=== PATIENT | male | born 1985 | race Caucasian/White ===

== ENCOUNTER 2016-09-12 11:38 | Emergency (ER) | payer OTHER ==
[~2016-09-12] VITALS: Ht 167.6 cm; Wt 76.2 kg
[~2016-09-12 11:38] MED LIST: ALBUTEROL0.09 MG/A1 INH; AUGMENTIN 875 M1 TAB PO; BACTRIM DS 8001 TAB PO; DOXYCYCLINE MO100 MG PO; KEFLEX500 MG PO; MOTRIN 600 MG600 MG PO; PREDNISONE50 MG PO; ROBITUSSIN200 MG/10 PO; TRAMADOL HCL50 M1 PO; ULTRAM(MONOGRAP50 MG PO; VOLTAREN75 MG PO; ZOFRAN4 MG PO
[2016-09-12 12:13] VITALS: BP 96/70
[2016-09-12] MEDS ORDERED: BACTRIM DS TAB1 EACH PO (12:52)
--- NOTE | 2016-09-12 12:53 | ED HEAD/FACIAL INJ COMPLAINT ---
History of Present Illness General Chief Complaint: General Adult Stated Complaint: NECK PAIN, LUMP BEHIND LEFT EAR, SEEN AT WALK IN Source: patient Exam Limitations: no limitations Vital Signs & Intake/Output Vital Signs & Intake/Output Vital Signs Date Time Temp Pulse Resp B/P Pulse O2 O2 Flow FiO2 Ox Delivery Rate 09/12 1213 98.8 16 96/70 09/12 1143 99.8 114 18 143/113 97 Room Air ED Intake and Output 09/13 0000 09/12 1200 Intake Total 0 Output Total Balance 0 Intake, Oral 0 Patient 168 lb Weight Allergies Coded Allergies: doxycycline (Intermediate, N/V 04/26/16) ibuprofen (Intermediate, R/T HX STOMACH ULCER 04/26/16) Reconcile Medications Sulfamethoxazole/Trimethoprim (Bactrim Ds Tablet) 800 MG-160 MG TABLET 1 TAB PO BID infection Tramadol HCl 50 MG TABLET 1-2 TAB PO BIDP PRN pain Triage Note: PT STATES HE HAD PAIN IN HIS NECK YESTERDAY AND STATES HE THOUGHT IT WAS FROM SLEEP. PT STATES HE WENT TO PCP AND SHE TOLD HIM THAT "IT WAS SOMETHING BEHIND HIS EAR" AND TOLD PT IT WAS UP TO HIM IF HE WANTED TO BE SEEN IN THE ED. Triage Nurses Notes Reviewed? yes HPI: 31-year-old otherwise healthy male with complaints of left-sided neck pain and feeling of small areas of swelling around his neck and scalp region and around his left ear. Started yesterday and is getting worse. He denies any fever or flulike illness, he denies any cough or congestion. His pain is throbbing aching and worse with palpation of the area. No previous history of same. He was seen at his primary care doctor at the [facility] who, per the patient, that since he has neck pain he should be evaluated in the ER for meningitis. Patient denies any trauma to the area. Denies any neurologic symptoms, there is no photophobia, no nausea no vomiting. His doctor called in a prescription for amoxicillin for him and is at the pharmacy waiting for him to pick it up, he has not started it yet. (ALLA PAUL) Past History Travel History Traveled to [place] past 21 day No Medical History Any Pertinent Medical History? 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 No (ALLA PAUL) Review of Systems Review of Systems Constitutional: Reports: see HPI. Respiratory: Reports: no symptoms. Cardiovascular: Reports: no symptoms. GI: Reports: no symptoms. Genitourinary: Reports: no symptoms. Musculoskeletal: Reports: no symptoms. Skin: Reports: no symptoms. Neurological/Psychological: Reports: no symptoms. Hematologic/Endocrine: Reports: no symptoms. Immunologic/Allergic: Reports: no symptoms. All Other Systems: Reviewed and Negative (ALLA PAUL) Physical Exam Physical Exam General Appearance: well developed/nourished, mild distress Head: left side scalp, superior to the ear there is an area of redness and swelling consistent with cellulitis with warmth and exquisite tenderness. Around this area, he has lymphadenopathy, preauricular postauricular posterior cervical chain small mobile lymph nodes are noted. Eyes: Bilateral: PERRL, EOMI. Ears, Nose, Throat: normal pharynx, normal ENT inspection, hearing grossly normal Neck: normal inspection, supple Respiratory: normal breath sounds Cardiovascular: regular rate/rhythm Gastrointestinal: soft, non-tender Back: normal inspection Extremities: normal inspection, normal range of motion, no edema Psychiatric: awake, alert, oriented x 3 Cranial Nerves: normal hearing Coordination/Gait: normal gait Motor/Sensory: no motor/sensory deficits Skin: intact, normal color, warm/dry Lymphatic: no anterior cervical reese Comments: Patient has normal neck range of motion however it is painful with rotation. He has no meningismus. (ALLA PAUL) Progress Differential Diagnosis: corneal abrasion, c-spine injury, facial fracture, globe injury, ICH, orbit fracture, skull fracture, meningitis, abscess, cellulitis, mastoiditis, otitis media and otitis externa, malignant otitis externa Plan of Care: Patient has a cellulitis of the scalp, I do not have concerns of meningitis at this time. He will start the amoxicillin his doctor has prescribed and I have added Bactrim for increased coverage, specifically MRSA coverage. He should return in the next few days for recheck of his infection, he may need I&D of the scalp. He will return if he starts spiking fevers or develops flulike symptoms. He understands and agrees with plan. (ALLA PAUL) Departure Departure Disposition: HOME OR SELF CARE Condition: Stable Clinical Impression Primary Impression: Cellulitis of scalp Secondary Impressions: Lymphadenopathy of head and neck Referrals: ARMANDO MARLOW APRN (PCP/Family) Additional Instructions: Take antibiotics as directed from your primary care doctor, amoxicillin, add Bactrim as well, this was called into pharmacy. Motrin and Tylenol as needed for pain or fever. Return to the ER in 2 days for recheck of your infection, especially if there is worsening redness swelling pain fever or flulike illness headaches or neck pain. Departure Forms: Customer Survey General Discharge Information Prescriptions: Current Visit Scripts Sulfamethoxazole/Trimethoprim (Bactrim Ds Tablet) 1 TAB PO BID #20 TAB (ALLA PAUL) PA/MEDICAL AUTHORIZATION SPECIALIST Co-Sign Statement Statement: ED Attending supervision documentation- [] I saw and evaluated the patient. I have also reviewed all the pertinent lab results and diagnostic results. I agree with the findings and the plan of care as documented in the PA's/MEDICAL AUTHORIZATION SPECIALIST's documentation. x I have reviewed the ED Record and agree with the PA's/MEDICAL AUTHORIZATION SPECIALIST's documentation. [] Additions or exceptions (if any) to the PAs/MEDICAL AUTHORIZATION SPECIALIST's note and plan are summarized below: [] (JAMES COTTON,SONIA)
== END 2016-09-12 12:57 ==
LOC: ERH 11:38
DX: L03.811 Cellulitis of head [any part, except face] (principal); R59.1 Generalized enlarged lymph nodes

== ENCOUNTER 2016-09-18 06:44 | Emergency (ER) | payer OTHER ==
[~2016-09-18] VITALS: Ht 167.6 cm; Wt 76.2 kg
[~2016-09-18 06:44] MED LIST changes: +BACTRIM DS TAB1 EACH PO
--- NOTE | 2016-09-18 07:25 | ED HEAD/FACIAL INJ COMPLAINT ---
History of Present Illness General Chief Complaint: General Adult Stated Complaint: " HEADACHE, CELLULITIS LT SIDE OF HEAD" Source: patient Exam Limitations: no limitations Vital Signs & Intake/Output Vital Signs & Intake/Output Vital Signs Date Time Temp Pulse Resp B/P Pulse O2 O2 Flow FiO2 Ox Delivery Rate 09/18 0831 97.4 81 16 121/76 98 Room Air 09/18 0654 98.4 98 20 124/84 97 Room Air Allergies Coded Allergies: doxycycline (Intermediate, N/V 04/26/16) ibuprofen (Intermediate, R/T HX STOMACH ULCER 04/26/16) Reconcile Medications Diclofenac Sodium 75 MG TABLET. 1 TAB PO BID PRN PAIN Sulfamethoxazole/Trimethoprim (Bactrim Ds Tablet) 800 MG-160 MG TABLET 1 TAB PO BID infection Tramadol HCl 50 MG TABLET 1-2 TAB PO BIDP PRN pain Triage Note: SEEN HERE LAST WEEK FOR HEADACHE, NECK PAIN AND WAS DX WITH CELLULITIS. PT STATES HE WAS GIVEN MEDS ? NAME. STATES HE WENT TO PMD WHO RX'D AMOXICILLAN AND HE STILL IS NO BETTER Triage Nurses Notes Reviewed? yes HPI: Patient presents for evaluation of left-sided head and neck pain and the possibility of a left facial cellulitis. Patient states that he was seen in the emergency department and diagnosed with cellulitis. He was treated with antibiotics. He followed up with his primary care physician but doesn't seem to be doing any better with treatment. Patient is describing a primarily left neck pain radiating up behind the left ear that is described as a constant and fluctuating tightness gets worse with palpation and movement. He was also told that he may have had some reactive lymph nodes in that area secondary to the presumed cellulitis. He denies any fever or cold symptoms. Denies any visual or hearing acuity loss. He denies any known trauma or injury. Past History Travel History Traveled to [place] past 21 day No Medical History Any Pertinent Medical History? 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 No Review of Systems Review of Systems Constitutional: Reports: no symptoms. EENTM: Reports: no symptoms. Respiratory: Reports: no symptoms. Cardiovascular: Reports: no symptoms. GI: Reports: no symptoms. Genitourinary: Reports: no symptoms. Musculoskeletal: Reports: see HPI. Skin: Reports: see HPI. Neurological/Psychological: Reports: no symptoms. Hematologic/Endocrine: Reports: no symptoms. Immunologic/Allergic: Reports: no symptoms. All Other Systems: Reviewed and Negative Physical Exam Physical Exam General Appearance: see below Cranial Nerves: see below Comments: Gen.: Well-nourished, well-developed, no acute respiratory distress. Head: Normocephalic, atraumatic. Eyes: Normal inspection bilaterally Ears: Normal inspection bilaterally, left TM and canal normal Nose: Normal inspection Face: Mild dermatitis in the distribution of this patient's delarosa with a slight eczematous appearing rash left retroauricular, no lymphadenopathy, no abscesses Throat/mouth : Moist mucosa Neck: Supple, full range of motion, no goiter, tenderness over the left paraspinal musculature without soft tissue swelling ecchymoses or apparent lymphadenopathy Lungs: Quiet respirations Chest: Nontender Back: Normal range of motion Extremities: Normal range of motion grossly Neurologic: Cranial nerves grossly intact, speech is clear, gait is stable Skin: warm and dry Psychiatric: Calm, cooperative, no apparent delusions or hallucinations Lymphatic: See above Progress Differential Diagnosis: eCZEMA/DERMATITIS, LYMPHADENOPATHY, MUSCLE STRAIN Plan of Care: Orders Procedure Date/time Status CBC WITHOUT DIFFERENTIAL 09/18 0724 Complete Laboratory Tests 09/18/16 0430: CBC w Diff NO MAN DIFF REQ, RBC 5.36, MCV 87.3, MCH 30.3, RDW 12.8, MPV 7.3 L, Gran % 55.2, Lymphocytes % 37.5, Monocytes % 6.0, Eosinophils % 1.0, Basophils % 0.3, Absolute Granulocytes 3.1, Absolute Lymphocytes 2.1, Absolute Monocytes 0.3 , Absolute Eosinophils 0.1, Absolute Basophils 0, PUBS MCHC 34.8 Diagnostic Imaging: Discussed w/RAD: CT Scan. Radiology Impression: SLIGHTLY ASYMMETRICAL LYMPHADENOPATHY OF THE LEFT NECK. Departure Departure Disposition: HOME OR SELF CARE Condition: Stable Clinical Impression Primary Impression: Cervical lymphadenopathy Referrals: ARMANDO MARLOW APRN (PCP/Family) Additional Instructions: Your CAT scan showed what is likely reactive lymph nodes along the left side of the neck. These are typically in reaction to an infectious or inflammatory process. Resolution of your enlarged lymph nodes should be monitored by her primary care physician over the next few weeks. If they do not resolve additional testing is required. Please contact your primary care physician this week and arrange for follow-up appointment. Return if any concerns or sudden worsening. Please note that there might be incidental findings in your evaluation that are unrelated to the current emergency department visit. Please notify your primary care doctor about this emergency department visit in order to obtain and review all of the testing performed so that these incidental findings can be monitored as needed. If you had an x-ray performed, please understand that some fractures may not be seen on the initial set of x-rays. If your symptoms persist you might need a repeat set of x-rays to check for such a fracture. If you had a laceration evaluated, please understand that foreign bodies such as glass or wood may not be visible to the naked eye or on plain x-rays. If the wound becomes red, swollen, increasingly more painful or if there is any drainage from the wound, please have it reevaluated by a physician for the possibility of a retained foreign body. Thank you for choosing the Emergency Department for your care. It was a pleasure to serve you today. Teo Pugh M.D. [facility] Departure Forms: Customer Survey General Discharge Information Prescriptions: Current Visit Scripts Diclofenac Sodium 1 TAB PO BID PRN PAIN #14 TAB
[2016-09-18 07:39] LABS: ABSOLUTE BASOPHIL COUNT 0 /CUMM (0.0-0.2); ABSOLUTE EOSINOPHIL COUNT 0.1 /CUMM (0.0-0.7); ABSOLUTE GRANULOCYTE CT 3.1 /CUMM (1.4-6.5); ABSOLUTE LYMPH COUNT 2.1 /CUMM (1.2-3.4); ABSOLUTE MONOCYTE COUNT 0.3 /CUMM (0.10-0.60); BASOPHIL % 0.3 % (0.0-2.0); GRANULOCYTE % 55.2 % (42.2-75.2); HEMATOCRIT 46.8 % (42-52); MEAN CORPUSCULAR HGB 30.3 PG (27.0-31.0); MEAN CORPUSCULAR HGB CONC 34.8 G/DL (33.0-37.0); MEAN CORPUSCULAR VOLUME 87.3 FL (80.0-94.0); MEAN PLATELET VOLUME 7.3 FL (7.4-10.4); PLATELET COUNT 222 /CUMM (130-400); RBC DISTRIBUTION WIDTH 12.8 % (11.5-14.5); RED BLOOD CELL CT 5.36 /CUMM (4.70-6.10); WHITE BLOOD CELL COUNT 5.6 /CUMM (4.8-10.8)
[2016-09-18 08:31] VITALS: BP 121/76
--- NOTE | 2016-09-18 08:46 | CT SCAN REPORT ---
EXAMINATION: CT NECK WITH CONTRAST CLINICAL INFORMATION: Left neck adenopathy. Recent treatment for facial cellulitis COMPARISON: None TECHNIQUE: CT scanning of the neck was performed after the uneventful administration of 95 mL Optiray 320 intravenous contrast. Coronal and sagittal reformatted images were generated. DLP: 384 mGy-cm FINDINGS: There is mild asymmetry in the number and caliber of left-sided lymph nodes relative to the right. For example left level 2 lymph nodes measure up to 1.4 cm, versus 1.2 cm on the contralateral side. Level 3 lymph nodes measure up to 1.2 cm in long axis, 8 mm on the contralateral side. Level 5 lymph nodes measure up to 1 cm in long axis, 8 mm on the contralateral side. They retain a normal oval morphology. The imaged pharyngeal and laryngeal contours are unremarkable accounting for some motion at the level of the thyroid cartilage. The oral cavity appears unremarkable. No evidence of sialadenitis in the parotid or submandibular glands. No focal thyroid lesions. No upper mediastinal adenopathy. The lung apices are clear. The imaged orbits are unremarkable. The visualized portions of the brain are normal. The aortic arch is normal in caliber. The carotid sheath and vertebral vasculature opacify normally. No acute osseous abnormalities. The paranasal sinuses, nasal cavity, nasopharynx, mastoid air cells and middle ear cavities are clear. The temporal mandibular joints articulate normally. No periapical lucencies. There is straightening of the normal cervical lordosis and mild cervical spondylosis with disc osteophyte complex at C6-C7 without significant canal stenosis. IMPRESSION: Slight asymmetry of the caliber of the cervical lymph nodes, slightly larger on the left than the right. These measure top normal to minimally enlarged, and retain a normal morphology. They are suspected to be reactive particularly in the setting of recently treated infection.
[2016-09-18] MEDS ORDERED: DICLOFENAC SODI75 M2 PO (09:43)
== END 2016-09-18 09:57 ==
LOC: ERH 06:44
PROVIDERS: Emergency Medicine
DX: R59.0 Localized enlarged lymph nodes (principal)